=== PATIENT | female | born 1945 | race Caucasian/White ===

== ENCOUNTER 2019-03-24 22:10 | Emergency (ER) | payer MEDICARE ==
[~2019-03-24] VITALS: Ht 154.9 cm; Wt 63.5 kg
[2019-03-24] MEDS ORDERED: NKM (22:17)
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
[2019-03-24 22:28] VITALS: BP 180/92
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
[2019-03-24] MEDS ORDERED: Methocarbamol 750mg tab ORAL ONE (22:45)
[2019-03-24] MEDS ORDERED: IBUPROFEN600 MG ORAL (22:53)
[2019-03-24 23:15] VITALS: BP 149/91
--- NOTE | 2019-03-24 23:17 | NUR ---
ER DISCHARGE NOTE: Patient is cleared to be discharged per ERMD, pt is aox4, on room air, with stable vital signs. pt was given dc and prescription instructions, pt was able to verbalize understanding, pt id band removed. pt is able to ambulate with steady gait. pt took all belongings.
== END 2019-03-24 23:17 | disposition home or self-care (01) ==
LOC: EMR 22:39
DX: M54.9 Dorsalgia, unspecified (principal); M54.2 Cervicalgia; Z88.8 Allergy status to other drugs, medicaments and biological substances; M79.604 Pain in right leg; V43.62XA Car passenger injured in collision with other type car in traffic accident, initial encounter; Y92.410 Unspecified street and highway as the place of occurrence of the external cause; R00.0 Tachycardia, unspecified
CPT/HCPCS: 99282